=== PATIENT | female | born 1950 | race Hispanic/Latino ===

== ENCOUNTER 2020-05-31 13:08 | Emergency (ER) | payer MEDICARE, OTHER ==
[~2020-05-31] VITALS: Ht 157.5 cm; Wt 81.6 kg
[~2020-05-31 13:08] MED LIST: CYCLOBENZAPRINE10 MG PO; IBUPROFEN600 MG PO; LIPITOR40 MG PO; LISINOPRIL10 MG PO; MELOXICAM15 MG PO; METFORMIN HCL1000 MG PO; NORCO 5-325 TA1 EACH PO; OMEPRAZOLE20 MG PO; PANTOPRAZOLE SO40 MG PO; SENNA8.6 MG PO; ZOFRAN ODT4 MG PO
--- OUTSIDE RECORDS SUMMARY | 2020-05-31 13:12 | XMS ---
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 Gaston VISIT COUNT (12 MO.) [address] TOTAL 2 NOTE: Visits indicate total known visits. ED/UCC VISIT TRACKING (12 MO.) 05/31/2020 13:10 [facility] [place] TYPE: Emergency COMPLAINT: - UNABLE TO EAT OR DRINK 05/27/2020 11:59 [facility] [place] TYPE: Emergency DIAGNOSES: - Epigastric pain - CHEST PAIN ABDOMINAL PAIN INPATIENT VISIT TRACKING (12 MO.) No inpatient visits to display in this time frame [email or web address]
[2020-05-31] MEDS ORDERED: VENTOLIN HFA18 GM INH (13:39)
[2020-05-31] MEDS ORDERED: TRULICITY0.75 MG/0. SQ (13:40)
[2020-05-31] MEDS ORDERED: PIOGLITAZONE HC30 MG PO (13:40)
[2020-05-31] MEDS ORDERED: METOPROLOL SUCC50 MG PO (13:41)
== END 2020-05-31 16:43 | disposition home or self-care (01) ==
LOC: ED 13:08
DX: K29.70 Gastritis, unspecified, without bleeding (principal); E11.9 Type 2 diabetes mellitus without complications; I10 Essential (primary) hypertension; E78.00 Pure hypercholesterolemia, unspecified; Z79.899 Other long term (current) drug therapy
CPT/HCPCS: 99283

== ENCOUNTER 2024-02-10 05:50 | Day surgery (SDC) | payer MEDICARE, OTHER ==
[2024-01-28 11:32] VITALS: BP 168/65
[~2024-02-10] VITALS: Ht 157.5 cm; Wt 110.9 kg
[2024-02-10] VITALS (9 sets, daily range): BP systolic 136–172; BP diastolic 60–93
[~2024-02-10 05:50] MED LIST changes: +COMBIVENT RESPIM4 GM INH; +EUTHYROX50 MCG PO; +HYDROCHLOROTHIA25 MG PO; +LACTATED RINGER'S 1,000 ML IV SCH; +LEXAPRO10 MG PO; +METOPROLOL SUCC50 MG PO; -OMEPRAZOLE20 MG PO; +OMEPRAZOLE40 MG PO; +OZEMPIC0.25 MG/02 SQ; +PIOGLITAZONE HC30 MG PO; +TRIAMCINOLONE A15 G2 TOP; +TRULICITY0.75 MG/0. SQ; +VENTOLIN HFA18 GM INH
[2024-02-10] MEDS ORDERED: LIDOCAINE HCL 2% 20 MG/ML VIAL INJ ONE (06:07)
[2024-02-10] MEDS ORDERED: ePHEDrine sulfate 50 MG/ML AMP ONE (06:09)
[2024-02-10 06:22] LABS: BASOPHILS 0.5 % (0-2); HEMATOCRIT 38.4 % (35.0-50.0); HEMOGLOBIN 12.7 g/dL (12.0-18.0); LYMPHOCYTES 24.1 % (24-44); MCH 31.7 (27-36); MCHC 33.2 g/dl (30-36); MCV 95.6 fl (81-99); MONOCYTES 8.3 % (0-12); NEUTROPHILS 65.1 % (39-80); PLATELET COUNT 275 K/uL (140-440); RBC 4.01 M/ul (4.3-5.7)
[2024-02-10] MEDS ORDERED: PIOGLITAZONE HC45 MG PO (06:22)
[2024-02-10] MEDS ORDERED: Ropivacaine HCl 20 MG/10 ML AMP ONE (06:38)
[2024-02-10] MEDS ORDERED: ROPIVACAINE IN 0.9% SOD CHL/PF 545 ML ELS.PMP.HR IRRIGATION ONE (06:39)
[2024-02-10 06:40] LABS: ALBUMIN 3.8 g/dL (3.4-5.0); ALBUMIN/GLOBULIN RATIO 0.95 (1.1-2.4); BILIRUBIN, TOTAL 0.7 ng/dL (0.2-1.0); CALCIUM 9.7 mg/dL (8.5-10.1); CREATININE, SERUM 0.95 mg/dL (0.55-1.02); PROTEIN, TOTAL 7.8 g/dL (6.4-8.2)
[2024-02-10] MEDS ORDERED: fentaNYL citrate 100 MCG/2 ML VIAL ONE (06:44)
[2024-02-10] MEDS ORDERED: MIDAZOLAM HCL 2 MG/2 ML VIAL ONE (06:44)
[2024-02-10] MEDS ORDERED: PANTOPRAZOLE SODIUM 40 MG TABEC PO SCH (07:00)
[2024-02-10] MEDS ORDERED: CEFAZOLIN SODIUM 2 GM/20 ML SYR IV SCH ×2 (07:00→15:00)
[2024-02-10] MEDS ORDERED: IBLOOD GLUCOSE TEST STRIP 1 EA TEST VI PRN (07:00)
[2024-02-10] MEDS ORDERED: GABAPENTIN 600 MG TAB PO SCH (07:00)
[2024-02-10] MEDS ORDERED: ondansetron HCL 4 MG TAB PO SCH (07:00)
[2024-02-10] MEDS ORDERED: INTRA-ARTICULAR ANALGESIC INJECTION XX SCH (07:00)
[2024-02-10] MEDS ORDERED: TRANEXAMIC ACID 2,000 MG in SODIUM CHLORIDE 0.9% 100 ML IV SCH (07:00)
[2024-02-10] MEDS ORDERED: ROPIVACAINE IN 0.9% SOD CHL/PF 545 ML ELS.PMP.HR IRRIGATION SCH (07:00)
[2024-02-10] MEDS ORDERED: LIDOCAINE HCL 1% 5 ML SDV INJ ONE (07:00)
[2024-02-10] MEDS ORDERED: OXYCODONE HCL 5 MG TAB PO SCH (07:00)
[2024-02-10] MEDS ORDERED: OXYCODONE HCL 5 MG TAB PO PRN (07:15)
[2024-02-10] MEDS ORDERED: ondansetron HCL 4 MG TAB PO PRN (07:15)
[2024-02-10] MEDS ORDERED: KETOROLAC TROMETHAMINE 30 MG/ML VIAL IV PRN (07:15)
[2024-02-10] MEDS ORDERED: LIDOCAINE HCL 2% 5 ML SDV ONE (07:21)
[2024-02-10] MEDS ORDERED: ROCURONIUM BROMIDE 50 MG/5 ML SYR ONE (07:34)
[2024-02-10] MEDS ORDERED: SUCCINYLCHOLINE IN 0.9% NACL 200 MG/10 ML SYRINGE ONE (07:34)
[2024-02-10] MEDS ORDERED: HYDROmorphone HCL 2 MG/ML VIAL ONE (07:53)
[2024-02-10] MEDS ORDERED: ACETAMINOPHEN 1,000 MG/100 ML VIAL ONE (08:39)
[2024-02-10] MEDS ORDERED: SUGAMMADEX SODIUM 200 MG/2 ML ML ONE (08:39)
[2024-02-10] MEDS ORDERED: BUPIVACAINE HCL 0.5% 30 ML VIAL ONE ×2 (08:53)
[2024-02-10] MEDS ORDERED: XARELTO10 MG PO (08:54)
[2024-02-10] MEDS ORDERED: CEFUROXIME250 MG PO (08:54)
[2024-02-10] MEDS ORDERED: OXYCODONE HCL5 MG PO (08:55)
[2024-02-10] MEDS ORDERED: SENNA LAX8.6 MG PO (08:55)
[2024-02-10] MEDS ORDERED: DICLOFENAC SODI75 MG PO (08:55)
[2024-02-10] MEDS ORDERED: TRANEXAMIC ACID 2,000 MG in SODIUM CHLORIDE 0.9% 100 ML IV ONE (09:18)
[2024-02-10] MEDS ORDERED: fentaNYL citrate 100 MCG/2 ML VIAL IV PRN (09:30)
[2024-02-10] MEDS ORDERED: HYDROmorphone HCL 1 MG/ML SYR IV PRN (09:30)
[2024-02-10] MEDS ORDERED: NALOXONE HCL 0.4 MG SYR IV PRN (09:30)
[2024-02-10] MEDS ORDERED: MEPERIDINE HCL 25 MG/1 ML VIAL IV PRN (09:30)
[2024-02-10] MEDS ORDERED: ondansetron HCL 4 MG/2 ML VIAL IV PRN (09:30)
--- NOTE | 2024-02-10 09:36 | OR ---
[facility] [address] [place], [place] [address] Signed DATE OF OPERATION: 02/10/2024 SURGEON: Jeanette Mcgrath MD PREOPERATIVE DIAGNOSIS: Left knee degenerative joint disease, severe. POSTOPERATIVE DIAGNOSIS: Left knee degenerative joint disease, severe. PROCEDURE PERFORMED: Left total knee arthroplasty with Theo. POINT OF SALE ASSOCIATE: Brissa Cooper PA-C. Brissa was present and critical for all portions of procedure. ANESTHESIA: General. BLOOD LOSS: 175 mL. TOURNIQUET TIME: Zero. IMPLANTS: Sabino Triathlon size 3 femur, size 2 tibia, 10 mm polyethylene and 32 mm patella. BRIEF HISTORY: Esme is a 74-year-old female with progressive worsening of osteoarthritis. She had undergone prior right total knee with good results, wished to proceed with left. Risks, benefits, and alternatives were discussed with her and she elected to proceed. DESCRIPTION OF PROCEDURE: Once consent was obtained, she was taken to the operating room. After failure of the spinal, she was placed under general anesthesia and the left hip was placed on hip bump. The left knee was prepped and draped in a standard sterile fashion and the knee was approached through a standard anterior midline incision. This was carried through the skin and subcutaneous tissue and the low mid vastus arthrotomy was performed. The Electronically Signed By: JEANETET MCGRATH MD 02/10/24 0936 PATIENT NAME: ESME BOURGEOIS OPERATIVE REPORT DATE OF : 50 REPORT #: [id number] PHYSICIAN: JEANETTE MCGRATH MD PCP: DEZ TITUS REPORT IS CONFIDENTIAL AND NOT TO BE RELEASED WITHOUT AUTHORIZATION [facility] [address], [place] [address] Signed infrapatellar fat pad was excised. The MCL was elevated as a sleeve around to the posteromedial corner. The anterior horns of the menisci were transected. The ACL was transected. The PCL was found to be intact. It should also be noted during early manipulation of her leg that her hip is quite stiff with a 5 degree external rotation contracture. This made manipulation and positioning of the knee a little bit more difficult. The navigation computer arrays were then placed in the medial femoral condyle and proximal tibia. The leg was registered with the computer again with some difficulty due to the hip motion. The fine anatomic points to the knee were registered with the computer. The four ligamentous poses were then taken and adjustments were made in the computer alignment. Once this was satisfactory balanced, the robot was brought in. The four straight cuts were made and the two angled cuts were made. Care was taken to protect the patellar tendon and MCL during this portion of the procedure. The bony rim was removed as were any remaining osteophytes. Posterior osteophytes were removed off the femur and posterior release was performed due to a preoperative flexion contracture. The trials were then positioned. Knee went from 0 to 120 degrees with good stability throughout. The patella was cut sized and drilled for a 32 mm patella. Patellar tracking was noted to be good. The distal femoral drill holes were completed. The proximal tibia was finished using the keel punch followed by the four drill holes. The noncemented tibial tray was then impacted until it was well-seated. The polyethylene was snapped into position and the femur was impacted. The knee was extended and loaded. The patella was clamped into position and again taken through range of motion with good patellar tracking. The periarticular soft tissue was injected with 100 mL of ropivacaine and Toradol mixture. The On-Q pain pump was percutaneously placed into the adductor canal from the suprapatellar pouch. The arthrotomy was then closed using a combination of #2 FiberWire and #2 Stratafix, subcutaneous tissue with 0 Stratafix and the skin with 3-0 Stratafix. The incision was then sealed with Dermabond and Steri-Strips. Dressing of Acticoat-7, ABD, and Alex wrap was applied. She tolerated the procedure well. All sponge, needle, and instrument counts were correct. Jeanette Mcgrath MD BA/MODL /[id number] Electronically Signed By: JEANETTE MCGRATH MD 02/10/24 0936 PATIENT NAME: ESME BOURGEOIS OPERATIVE REPORT DATE OF : 50 REPORT #: [id number] PHYSICIAN: JEANETTE MCGRATH MD PCP: DEZ TITUS REPORT IS CONFIDENTIAL AND NOT TO BE RELEASED WITHOUT AUTHORIZATION [facility] [address] [place] [address] [place], [place] [address] Signed Copies: ~ Electronically Signed By: JEANETTE MCGRATH MD 02/10/24 0936 PATIENT NAME: ESME BOURGEOIS OPERATIVE REPORT DATE OF : 50 REPORT #: [id number] PHYSICIAN: JEANETTE MCGRATH MD PCP: DEZ TITUS REPORT IS CONFIDENTIAL AND NOT TO BE RELEASED WITHOUT AUTHORIZATION
--- NOTE | 2024-02-10 10:15 | NUR ---
PT ARRIVES TO DS UNIT FROM PACU VIA STRETCHER. DAUGHTER AT BEDSIDE TRANSLATING FOR PT AT THIS TIME AT PT REQUEST. PT REPORTS PAIN 5/10 ON TOP OF LFT KNEE. DRESSING C/D/I, NO SIGNS OF BLEEDING AT THIS TIME. CMS INTACT, PT ABLE TO WIGGLE TOES WITHOUT DIFFICULTY. ICE WATER AND PUDDING PROVIDED THIS TIME. DAUGHTER IN ROOM ASSISTING WITH FEEDING. PT TITRATED TO 1L OF O2 D/T O2 >90% VIA PULSE OX, RESPIRATIONS EVEN AND UNLABORED, NO SIGNS OF DISTRESS. ONQ PUMP AT 4, HEEL PROTECTORS, MARIE HOSE, CRYO CUFF IN PLACE AT THIS TIME. CALL LIGHT WITHIN REACH, NO FURTHER NEEDS AT THIS TIME.
--- NOTE | 2024-02-10 10:57 | NUR ---
02/10/24 J Luis7 Carol Elkins Umm 0905-PT PRESENTS TO PACU, SEMI WALTERS POSITION. OPA IN PLACE, BREATHING EVEN AND NON LABORED, O2 AT 6L PER MASK. PT REACTIVE TO STIMULUS BUT NOT YET FOLLOWING COMMANDS. ABD SOFT, NON DISTENDED. DRESSING IN PLACE TO LEFT KNEE, ON Q PUMP AT 4ML/HR. LR INFUSING TO RH IV. ALL MONITORS IN PLACE. 0908- OPA REMOVED AT THIS TIME, O2 REMAINS IN PLACE. PT REPORTS 4/10 PAIN. 0920- PT CONTINUES TO C/O PAIN, WILL BRING FAMILY TO BEDSIDE TO HELP INTERPRET. 0930- PT MOVED TO ROOM AIR, REPORTS PAIN 7/10. WILL MEDICATED PER ORDERS. 0935- PT SATS DROP DOWN TO 87% WHILE RESTING. PT DOES FOLLOW COMMANDS TO DEEP BREATH AND COUGH, SATS COME UP TO MID 90'S BUT FALL QUICKLY WHEN FALLS BACK TO SLEEP. 0940- PLACED PT ON 2L O2 PER NC DUE TO SATS DROPPING WITH RESTING AND PAIN MEDICATION. PT TOLERATING WELL. 0946- PT NEEDING TO URINATE, WILL USE BEDPAN. 0949- PT VOIDED INTO BED OLEARY, LARGE VOID BUT CHUX USED TO SOAK UP. 1003- PT REPORTS PAIN 4-5/10 AFTER DILAUDID, TOLERABLE LEVEL FOR PT. DISCUSSED GETTING SOMETHING SMALL TO EAT AND TAKING A PAIN PILL. 1015- PT TAKEN BACK TO DAY SURGERY VIA STRETCHER. NO SIGNS OF DISTRESS. REPORT TO BLESSING PUENTE AND LAKSHMI PUENTE.
[2024-02-10] MEDS ORDERED: ondansetron HCL 4 MG/2 ML VIAL IV ONE (11:00)
--- NOTE | 2024-02-10 11:44 | NUR ---
LE 1045: PT REPORTS NEED TO URINE VOID. THIS RN, BLESSING RN, AND PT DAUGHTER AT BEDSIDE FOR 2PA. PT FULL 2PA AND REPORTS PAIN W/MOVEMENT. PT URINE VOID 125 ML OF CLEAR/YELLOW URINE. PT ON COMMODE REPORTS NAUSEA & DIZZINESS, PT EMESIS AT THIS TIME. PT BACK TO BED W/FULL 2PA. PT REPORTS CONTINUOUS NEED TO URINE VOID. COLD RAG IN PLACE, VERBAL ORDER RECEIVED FOR 4MG OF IV ZOFRAN RECEIVED FROM XIMENA ALCANTAR. 4MG OF IV ZOFRAN GIVEN. PT RESTING IN BED W/FAMILY AT BEDSIDE, WASHCLOTH ON HEAD, CALL LIGHT WITHIN REACH. PT REPORTS NO FURTHER NEEDS AT THIS TIME. LE 1100: BS CHECK OF 312. LE 1120: PT TITRATED TO 2L OF O2 VIA NC POST AMBULATION D/T O2 DROP TO 80'S. PT REPORTS SOB POST AMBULATION. PT 3 BREATHS IN INCENTIVE SPIROMETER AT THIS TIME AND STATES THIS IMPROVES SOB. CALL LIGHT WITHIN REACH, FAMILY AT BEDSIDE. CONT PULS OX IN PLACE. LE 1123: PT REPORTS NEED TO URINE VOID AT THIS TIME. 2PA TO PLACE BED OLEARY UNDER PT. PT URINE VOID UNMEASURABLE AMOUNT AT THIS TIME. PT RESTING W/WARM BLANKETS IN PLACE, ICE WATER AT BEDSIDE. FAMILY REMAINS AT BEDSIDE. CALL LIGHT WITHIN REACH. CONT PULSE OX IN PLACE. 1125: VS TAKEN AND ASSESSMENT PERFORMED. PT REPORTS PAIN IS 0/10 AT THIS TIME AND STATES ONLY OCCURS W/MOVEMENT. DRESSING REMAINS C/D/I. CRYO CUFF, MARIE HOSE, FOOT PUMPS, HEEL PROTECTION IN PLACE. PT STATES NAUSEA AND DIZZINESS HAS IMPROVED. PT RESTING W/EYES CLOSED. RESPIRATIONS EVEN AND UNLABORED, NO SIGNS OF DISTRESS. PT ON 2L OF O2 VIA NC, CONT PULSE OX IN PLACE. CMS INTACT, PT ABLE TO WIGGLE TOES AND ENCOURAGED TO PERFORM LEG EXERCISES AT REST. PT STATES VERBAL UNDERSTANDING TO EDUCATION. CALL LIGHT WITHIN REACH, FAMILY AT BEDSIDE, PT STATES NO FURTHER NEEDS OR QUESTIONS AT THIS TIME.
--- NOTE | 2024-02-10 13:34 | NUR ---
LE 1255: PT TITRATED TO 1L OF O2 VIA NC D/T >90%, RESPIRATIONS EVEN AND UNLABORED, NO SIGNS OF DISTRESS. PT REQUESTS TO USE BED OLEARY BECAUSE SHE FEELS UNSAFE STANDING AT THIS TIME. PT URINE VOID UNMEASURABLE AMOUNT AT THIS TIME VIA BED OLEARY. NEW DRAWSHEET AND DEPENDS IN PLACE. LE 1315: PT TITRATED TO RA D/T O2 >90% AT 1L OF O2 VIA NC. PT TOLERATING SMALL SIPS OF ICE WATER WITHOUT DIFFICULTY OR ANY REPORTED NAUSEA. CALL LIGHT WITHIN REACH, FAMILY AT BEDSIDE. VS TAKEN. NO ACUTE CHANGES FROM PREVIOUS SURGICAL ASSESSMENT. PT CONTINUES TO REPORT PAIN 0/10 AT REST. LE 1330: LUNCH ARRIVES. PT TOLERATING SMALL BITES AT THIS TIME WITHOUT DIFFICULTY OR REPORTED NAUSEA. CALL LIGHT WITHIN REACH. FAMILY AT BEDSIDE ASSISTING.
--- NOTE | 2024-02-10 14:24 | NUR ---
LE 1400: IN PT ROOM FOR PT REPORT OF ONSET OF NAUSEA. NO EMESIS AT THIS TIME. FLUID RATE INCREASED. PT ABLE TO EAT 2 BITES OF SANDWICH. CALL LIGHT WITHIN REACH, PT STATES NO FURTHER NEEDS AT THIS TIME. FAMILY AT BEDSIDE. LE 1417: PT STATES NAUSEA IMPROVING W/IV FLUID. PT TITRATED TO RA D/T O2 >90% VIA CONT PULSE OX. RESPIRATIONS EVEN AND UNLABORED, NO SIGNS OF DISTRESS. CALL LIGHT WITHIN REACH. FAMILY AT BEDSIDE. 1422: PAVAN W/PHYSICAL THERAPY IN PT ROOM AT THIS TIME D/T PT REPORT DESIRE TO TRY TO WORK WITH PHYSICAL THERAPY AT THIS TIME. CALL LIGHT WITHIN REACH. FAMILY AT BEDSIDE.
[2024-02-10] MEDS ORDERED: GABAPENTIN 300 MG CAP PO SCH (15:00)
--- NOTE | 2024-02-10 15:10 | NUR ---
patient attempted PT and has failed at this time. Shantell PT, will reassess in about 45 minutes. vital signs obtained. patient placed on 1L NC due to saturations dropping into high 80's when at rest. dressing in place to left knee and intact. no drainage noted. Cryocuff replaced. Patient denies any other needs at this time.
--- NOTE | 2024-02-10 16:13 | NUR ---
PAVAN, PT, REASSESSED PATIENT. PATIENT AND PAVAN BOTH FEEL LIKE SHE IS NOT SAFE TO GO HOME AT THIS TIME. PATIENT STILL HAVING PAIN, WEAKNESS, AND NAUSEA. PATIENT'S BRIEF CHANGES WHILE PATIENT WAS UP DURING PT. BEDDING CHANGED. PATIENT HAS BEEN WETTING THE BED/BRIEF BUT STATES THAT SHE IS ABLE TO FEEL THE URGE TO GO, BUT DOES NOT WANT TO GET UP TO GO BECAUSE SHE IS AFRAID OF THE PAIN/WEAKNESS/NAUSEA. PATIENT PLACED BACK IN BED. COMPRESSION BOOTS AND CRYOCUFF REPLACED. VITAL SIGNS OBTAINED. PATIENT DENIES ANY OTHER NEEDS AT THIS TIME
[2024-02-10] MEDS ORDERED: ONDANSETRON 4 MG TAB ODT SL PRN (16:30)
--- NOTE | 2024-02-10 16:55 | NUR ---
PT TRANSPORTED VIA STRETCHER TO MS RM 109. PT STAND/PIVOT TO BED W/2 RN ASSIST. MARIE HOSE, HEEL PROTECTORS, CRYO CUFF, FOOT PUMPS IN PLACE. ONQ REMAINS INTACT @ 4. PT ON 1L OF O2 VIA NC D/T DSAT DURING REST, FAMILY EDUCATED ABOUT FOLLOWING UP W/PCP REGARDING POSSIBLE SLEEP APNEA, VERBAL UNDERSTANDING FROM FAMILY AT THIS TIME. DEPENDS IN PLACE D/T PT EPISODES OF INCONTINENCE, PT REPORTS FEELS URGE, BUT DOES NOT ATTEMPT TO GET UP TO URINE VOID. CALL LIGHT WITHIN REACH, BED IN LOWEST POSITION. VS TAKEN. REPORT GIVEN TO DANK PUENTE, SURGICAL DRESSING VISUALIZED. CPOX IN PLACE. PT, RN, AND PT FAMILY REPORT NO FURTHER NEEDS OR QUESTIONS AT THIS TIME.
--- NOTE | 2024-02-10 17:10 | NUR ---
PATIENT ARRIVED FROM DAY SURGERY AT 1700, VSS, PATIENT RATES LEFT KNEE PAIN 3/10, IS SITTING UP IN BED. PLAN TO ORDER SOUP AND CRACKERS FOR PATIENT FOR DINNER. PATIENT IS ON 1L OF O2 VIA NC FOR SATS OF 96%, PATIENT DESATS WITH SLEEP.
[2024-02-10] MEDS ORDERED: ALBUTEROL SULFATE 0.083% 3 ML VIAL INH PRN (17:15)
[2024-02-10] MEDS ORDERED: GLUCAGON,HUMAN RECOMBINANT 1 MG/ML VIAL SUB-Q PRN (17:30)
[2024-02-10] MEDS ORDERED: DEXTROSE 5% 1,000 ML IV PRN (17:30)
[2024-02-10] MEDS ORDERED: DEXTROSE 50% 50 ML SYR IV PRN ×2 (17:30)
[2024-02-10] MEDS ORDERED: IBLOOD GLUCOSE TEST STRIP 1 EA TEST XX PRN (17:30)
[2024-02-10] MEDS ORDERED: TRIAMCINOLONE 0.5% CREAM 15 GM TUBE TOP PRN (17:30)
--- NOTE | 2024-02-10 17:36 | NUR ---
PATIENT ARRIVED TO MED SURG AT 1700, POST OP VITALS COMPLETE IN DAY SURGERY. PATIENT WILL HAVE FURTHER P.T. TOMORROW. LEFT KNEE DRESSING IS CDI, CRYO CUFF IN ON AND FILLED WITH ICE. PATIENT REPORTS LEFT KNEE PAIN IS 3/10 AT REST, ON-Q PUMP IN PLACE. ROSA MARIA IN ROOM TO TRANSLATE AND IS PLANNING ON STAYING THE NIGHT. ORDERED CHICKEN NOODLE SOUP AND CRACKERS FOR PATIENT FOR DINNER. PATIENT WAS 1 PERSON PIVOT TX FROM [facility] TO BED. 1L O2 VIA NC, PATIENT DESATS WITH SLEEP. NO OTHER NEEDS AT THIS TIME.
--- NOTE | 2024-02-10 18:45 | NUR ---
PATIENT GIVEN A 5MG OXYCODONE FOR 4/10 INCREASING PAIN TO LEFT KNEE. FAMILY IN ROOM TO VISIT. NO OTHER NEEDS AT THIS TIME.
--- NOTE | 2024-02-10 19:33 | NUR ---
REPORT RECEIVED FROM DAY SHIFT RN. PT LYING IN BED ALERT AND ORIENTED. FAMILY AT BEDSIDE. DENIES NEEDS. WHITE BOARD UPDATED. CALL LIGHT IN REACH.
[2024-02-10] MEDS ORDERED: ALBUTEROL/IPRATROPIUM 3 ML NEB INH SCH (20:00)
[2024-02-10] MEDS ORDERED: INSULIN LISPRO 100 UNIT/ML ML SUB-Q SCH (21:00)
[2024-02-10] MEDS ORDERED: IBLOOD GLUCOSE TEST STRIP 1 EA TEST VI SCH (21:00)
[2024-02-10] MEDS ORDERED: SENNOSIDES 1 TAB PO SCH (21:00)
[2024-02-10] MEDS ORDERED: METOPROLOL SUCCINATE 50 MG TABCR PO SCH (21:00)
--- NOTE | 2024-02-10 21:27 | NUR ---
EVENING ASSESSMENT COMPLETE. SCHEDULED MEDS ADMIN PER EMAR. PT REPORTS LEFT KNEE PAIN 08/31. DENIES PRN FOR PAIN WHEN OFFERED. DENIES NAUSEA. UP TO BSC WITH 2PA TO VOID. PT INCONTINENT OF URINE WELL. LINENS CHANGED. STAFF ASSIST WITH [facility]. BACK TO BED, MATTI WELL. GAIT STEADY. SCD'S/TEDS IN PLACE. CRYO IN PLACE WITH FRESH ICE. LEFT KNEE DRESSING CDI. CMS INTACT. ON-Q IN PLACE INFUSING AT 4ML/HR. CPOX IN PLACE. SpO2 97% WITH 2L/NC. PT GRANDDAUGHTER TO STAY THE NIGHT. PT/FAMILY DENIES QUESTIONS OR CONCERNS. CALL LIGHT IN REACH.
--- NOTE | 2024-02-10 23:57 | NUR ---
PT RESTING IN BED WITH EYES CLOSED. RESPIRATIONS EVEN. SpO2 MID 96% ON 2L/NC. HR 80'S.
[2024-02-11] VITALS (7 sets, daily range): BP systolic 102–140; BP diastolic 45–54
--- NOTE | 2024-02-11 00:57 | NUR ---
IV ABX ADMIN PER EMAR. PT UP TO BSC WITH 1PA TO VOID. STAFF ASSIST WITH [facility]. BACK TO BED, MATTI WELL. GAIT STEADY. VS AND I&O OBTAINED. PT DENIES PAIN. LEFT KNEE ASSESSMENT UNCHANGED. DRESSING CDI. JELLO AND WATER PROVIDED. NO FURTHER NEEDS.
--- NOTE | 2024-02-11 04:31 | NUR ---
PT RESTING IN BED WITH EYES CLOSED. RESPIRATIONS EVEN. CALL LIGHT IN REACH.
--- NOTE | 2024-02-11 06:12 | NUR ---
PT UP TO BSC TO VOID WITH 1PA AND FWW. GAIT STEADY. BACK TO BED, MATTI WELL. VS AND I&O OBTAINED. PT REPORTS LEFT KNEE PAIN 08/31. PRN FOR PAIN ADMIN PER EMAR. LEFT KNEE DRESSING CDI. SMALL AMOUNT SEROSANG DRAINAGE NOTED FROM ON-Q INSTERTION SITE. SCD'S/TEDS IN PLACE. FRESH ICE TO CRYO. CMS INTACT. PT DENIES FURTHER NEEDS. CALL LIGHT IN REACH.
--- NOTE | 2024-02-11 07:05 | NUR ---
BEDSIDE REPORT RECEIVED FROM KWAME DAVIS. PT AWAKE AND ALERT, SATS 95% ON 1L O2 VIA NC. NO REQUESTS AT THIS TIME.
[2024-02-11] MEDS ORDERED: DICLOFENAC SOD 75 MG TABEC PO SCH (08:00)
[2024-02-11] MEDS ORDERED: Rivaroxaban 10 MG TAB PO SCH (08:00)
--- NOTE | 2024-02-11 08:15 | NUR ---
PHYSICAL ASSESSMENT COMPLETE. GRANDAUGHTER TRANSLATES PER PT PREFERENCE. DRESSING TO L KNEE INTACT AND ON-Q PUMP INTACT. PHYSICAL THERAPY INTO WORK WITH PT.
[2024-02-11] MEDS ORDERED: cefuroxime axetiL 250 MG TAB PO SCH (09:00)
[2024-02-11] MEDS ORDERED: LEVOTHYROXINE SODIUM 50 MCG TAB PO SCH (09:00)
[2024-02-11] MEDS ORDERED: ATORVASTATIN 40 MG TAB PO SCH (09:00)
[2024-02-11] MEDS ORDERED: PANTOPRAZOLE SODIUM 40 MG TABEC PO SCH (09:00)
[2024-02-11] MEDS ORDERED: hydroCHLOROthiazide 25 MG TAB PO SCH (09:00)
[2024-02-11] MEDS ORDERED: PIOGLITAZONE HCL 45 MG TAB PO SCH (09:00)
[2024-02-11] MEDS ORDERED: ESCITALOPRAM OXALATE 10 MG TAB PO SCH (09:00)
--- NOTE | 2024-02-11 09:00 | NUR ---
Spoke with pt and her granddaughter, Chantelle. Pt states she lives with her spouse. Pt speaks little Vietnamese, but answers the questions I ask and understands. Granddaughter also asks the questions in Filipino. Pt denies need for any DME and has a ramp. She already has DME the suggested. Pt does the house hold chores, but daughters and granddaughters will assist her until she can return to previous baseline. Pt denies financial issues and has help from multiple family members. I was notified by staff, ortho wanted pt to have HH. I called and spoke with Brissa LAMB from the office. F2F completed and faxed to her. She signed and returned. I called and spoke with Shantell at [facility]. They will see this pt Saturday at the latest, but will attempt to move up if they have any cancellations. Family requested I add Debby Monreal as the salesperson sewing machines as pt and spouse are Filipino speaking. I added this to the face sheet as the person to contact.
--- NOTE | 2024-02-11 09:56 | NUR ---
VISITED DURING SPIRITUAL CARE ROUNDS. PT APPEARED TO BE SLEEPING. DID NOT DISTURB. PROVIDED PRAYER.
--- NOTE | 2024-02-11 11:49 | NUR ---
PATIENT BLOOD GLUCOSE READ 335, NURSE HAS BEEN NOTIFIED ABOUT BG READING AND PATIENT DIET. NURSE WILL CHANGE DIET FROM REGULAR DIET TO 60G CARB DIET. NO REQUST FROM PATIENT AT THIS TIME.
--- NOTE | 2024-02-11 11:55 | NUR ---
PT UP WITH PHYSCIAL THERAPY.
--- NOTE | 2024-02-11 12:23 | NUR ---
UR CLINICAL REVIEW: 2 MN FOR VERSALUS-MEETS OBS CRITERIA MEDICARE SHORT STAY ORDER MATCHES REG NO AUTH REQUIRED PER MEDICARE GUIDELINES DISCHARGE HOME TODAY PENDING PT ASSESSMENT 02/12/24
--- NOTE | 2024-02-11 12:35 | NUR ---
MED REC COMPLETE
--- NOTE | 2024-02-11 14:57 | NUR ---
PT UP TO BATHROOM WITH SBA AND FWW. PT TOLERATES ACTIVITY WELL.
--- NOTE | 2024-02-11 15:14 | NUR ---
PT BACK TO BED, SCDS IN PLACE TO BILATERAL FEET. CRYOCUFF IN PLACE OVER LEFT KNEE. ON-Q PUMP DRESSING LOOSE, REINFORCED WITH TRANSPARENT FILM DRESSING. CRYCUFF FILLED WITH FRESH ICE. PAIN VOIDS 100 MLS OF CLEAR YELLOW URINE IN TOILET. CMS INTACT TO BLE.DRESSING TO LEFT KNEE INTACT.
--- NOTE | 2024-02-11 15:21 | NUR ---
O2 REMOVED PRIOR TO PT AMBULATING TO TOILET AND RETURNING TO BED. PT NOW SATS 93% ON RA.
--- NOTE | 2024-02-11 17:40 | NUR ---
PT SATS 95% ON RA. DISCUSSED DISCHARGE INSTRUCTIONS WITH PT VIA ROSA MARIA [employer]TER [employer]ODUCTION SUPERVISOR PER PT PREFERENCE. IS TEACHING PROVIDED. PT VERBALIZES UNDERSTANDING OF EDUCATION AND DISCHARGE INSTRUCTIONS. TEACHING ON USE OF CRYO-CUFF PROVIDED. IV REMOVED, TIP INTACT, GAUZE AND COBAN DRESSING APPLIED TO SITE, PT TOLERATED WELL. PT DRESSES WITH ASSIST FROM ROSA MARIA.
--- NOTE | 2024-02-11 18:18 | NUR ---
ZACK. PT LEAVES UNIT VIA WHEELCHAIR ESCORTED BY [employer] HERNDON, TO PRIVATE CAR DRIVEN BY [employer].
[2024-02-12] MEDS ORDERED: ATORVASTATIN 40 MG TAB PO SCH (21:00)
== END 2024-02-11 18:18 | disposition home or self-care (01) ==
LOC: DS 05:50 → MS 17:12 → DS 02-11 18:18
PROVIDERS: ATTEND Specialist
PROC: 0SRD0JZ Replacement of Left Knee Joint with Synthetic Substitute, Open Approach (ICD-10-PCS; principal; 2024-02-10 07:00)
DX: M17.12 Unilateral primary osteoarthritis, left knee (principal); I10 Essential (primary) hypertension; E11.9 Type 2 diabetes mellitus without complications; Z79.85 Long-term (current) use of injectable non-insulin antidiabetic drugs; Z79.899 Other long term (current) drug therapy; Z88.6 Allergy status to analgesic agent; Z88.8 Allergy status to other drugs, medicaments and biological substances
CPT/HCPCS: 01400; 36415; 64447; 73560; 76942; 80053; 83036; 85025; 94640; 94762; 97116; 97162; 97530; A9270; C1713; C1776; J0131; J0330; J0690; J1170; J1815; J1885; J2001; J2250; J2405; J2795; J3010; J3490; J7121; J7999